=== PATIENT | male | born 1985 | race African-American/Black ===

== ENCOUNTER 2019-06-10 14:16 | Emergency (ER) | payer SELFPAY ==
[2019-06-10 14:32] VITALS: BP 140/76
[2019-06-10] MEDS ORDERED: KETOROLAC TROMETHAMINE 60 MG/2 ML SDV IM ONE (15:11)
--- NOTE | 2019-06-10 15:11 | ER Document Report ---
ED Medical Screen (RME) - General Stated Complaint: FACE SWOLLEN - LEFT SIDE Time Seen by Provider: 06/10/19 15:06 Primary Care Provider: MARIZA ONEAL [Primary Care Provider] - Follow up as needed - [facility] Notes: 06/10/19 15:12 34-year-old male presents the ED for evaluation of left upper dental pain that started approximately 3 days ago. Patient states that he has had a dental cavity that he has not been able to get to the dentist for. Denies any fevers or chills. Is a smoker. Worse with time, nothing makes better. Has not tried any oyqt-sbr-[id number] medications. Has not tried any heat or ice. Denies fevers, chills, chest pain,palpitations, shortness of breath, dyspnea, nausea, vomiting, diarrhea, abdominal pain, hematuria,blurred vision, double vision, loss of vision, speech changes, LH, dizziness, syncope, headaches, wheezing, ST, URI, neck pain, weakness, bowel or bladder dysfunction, saddle anesthesia, numbness or tingling in bilateral upper or lower extremities equally, muscle paralysis, weakness in bilateral upper or lower extremities equally or rash. REVIEW OF SYSTEMS:reviewed vital signs by RN CONSTITUTIONAL : Denies fever, chills, or sweats. Denies recent illness. EENT: Denies eye, ear, throat, or mouth pain or symptoms. Denies nasal or sinus congestion or discharge. Denies throat, tongue, or mouth swelling or difficulty swallowing. reports dental pain CARDIOVASCULAR: Denies chest pain. Denies palpitations or racing or irregular heart beat. Denies ankle edema. RESPIRATORY: Denies cough, cold, or chest congestion. Denies shortness of breath, difficulty breathing, or wheezing. GASTROINTESTINAL: Denies abdominal pain or distention. Denies nausea, vomiting, or diarrhea. Denies blood in vomitus, stools, or per rectum. Denies black, tarry stools. Denies constipation. GENITOURINARY: Denies difficulty urinating, painful urination, burning, frequency, blood in urine, or discharge. MUSCULOSKELETAL: Denies back or neck pain or stiffness. Denies joint pain or swelling. SKIN: Denies rash, lesions or sores. HEMATOLOGIC : Denies easy bruising or bleeding. LYMPHATIC: Denies swollen, enlarged glands. NEUROLOGICAL: Denies confusion or altered mental status. Denies passing out or loss of consciousness. Denies dizziness or lightheadedness. Denies headache. Denies weakness or paralysis or loss of use of either side. Denies problems with gait or speech. Denies sensory loss, numbness, or tingling. Denies seizures. PSYCHIATRIC: Denies anxiety or stress. Denies depression, suicidal ideation, or homicidal ideation. ALL OTHER SYSTEMS REVIEWED AND NEGATIVE. Dictation was performed using [employer] voice recognition software PHYSICAL EXAMINATION: GENERAL: Well-appearing, well-nourished and in no acute distress. HEAD: Atraumatic, normocephalic. EYES: Pupils equal round and reactive to light, extraocular movements intact, sclera anicteric, conjunctiva are normal. ENT: Nares patent, oropharynx clear without exudates. Moist mucous membranes. TM with effusion bilaterally, no erythema. TMs intact. #14 gingiva with swelling, erythema and induration. No drainage or open wounds. No fluctuance. No facial swelling. Poor oral dentition, right upper jaw with several dental caries, no definite swelling or effusion. no trismus noted. Uvula is midline NECK: Normal range of motion, supple without lymphadenopathy LUNGS: Breath sounds clear to auscultation bilaterally and equal. No wheezes rales or rhonchi. HEART: Regular rate and rhythm without murmurs ABDOMEN: Soft, nontender, nondistended abdomen. No guarding, no rebound. No masses appreciated. Musculoskeletal: Normal range of motion, no pitting or edema. No cyanosis. NEUROLOGICAL: Cranial nerves grossly intact. Normal speech, normal gait. Normal sensory, motor exams PSYCH: Normal mood, normal affect. SKIN: Warm, Dry, normal turgor, no rashes or lesions noted. - Related Data Allergies/Adverse Reactions: shellfish derived Allergy (Verified 06/10/19 15:09) Physical Exam - Vital signs Vitals: Temp Pulse Resp BP Pulse Ox 99 F 84 20 140/76 H 99 06/10/19 14:29 06/10/19 14:29 06/10/19 14:29 06/10/19 14:29 06/10/19 14:29 Course - Re-evaluation Re-evalutation: 06/10/19 15:14 Afebrile vital stable no distress. Nurse's notes reviewed. Patient given Toradol 60 mg IM and will be started on clindamycin, take with food. Advised to follow-up with dentist for filling or tooth extraction. Advised to alternate between Tylenol and ibuprofen for pain control. To avoid smoking. Apply heat 20 minutes on 20 minutes off several times a day. After performing a Medical Screening Examination, I estimate there is LOW risk for a DEEP SPACE INFECTION (e.g., RAVI'S ANGINA OR RETROPHARYNGEAL ABSCESS), MENINGITIS, INTRACRANIAL HEMORRHAGE, or AIRWAY COMPROMISE, thus I consider the discharge disposition reasonable. Also, there is no evidence or peritonitis, sepsis, or toxicity. I have reevaluated this patient multiple times and no significant life threatening changes are noted. The patient and I have discussed the diagnosis and risks, and we agree with discharging home with close follow-up with the understanding that symptoms and presentations can change. We also discussed returning to the Emergency Department immediately if new or worsening symptoms occur. We have discussed the symptoms which are most concerning (e.g., changing or worsening pain, trouble swallowing or breathing, neck stiffness or fever) that necessitate immediate return. - Vital Signs Vital signs: Temp Pulse Resp BP Pulse Ox 99 F 84 20 140/76 H 99 06/10/19 14:29 06/10/19 14:29 06/10/19 14:29 06/10/19 14:29 06/10/19 14:29 Doctor's Discharge - Discharge Clinical Impression: Dental caries Condition: Stable Disposition: HOME, SELF-CARE Instructions: Dentist, Dental Infection or Abscess ([facility]) Additional Instructions: Apply heat 20 minutes on 20 minutes off several times a day, take antibiotics as directed with food. Alternate between Tylenol and ibuprofen. Follow-up with dentist within the next 5 days. Return immediately for any new or worsening symptoms. Follow up with primary care provider, call tomorrow to make followup appointment. Prescriptions: Clindamycin HCl 300 mg PO Q6H #28 capsule Forms: Return to Work Referrals: MARIZA ONEAL [Primary Care Provider] - Follow up as needed DEISY JOHNSON MD [COMMUNITY BASED STAFF] - Follow up as needed
--- NOTE | 2019-06-10 15:17 | ER Document Report ---
HPI - HPI Time Seen by Provider: 06/10/19 15:06 Pain Level: 3 Notes: 34-year-old male presents the ED for evaluation of left upper dental pain that started approximately 3 days ago. Patient states that he has had a dental cavity that he has not been able to get to the dentist for. Denies any fevers or chills. Is a smoker. Worse with time, nothing makes better. Has not tried any mcis-tak-tthwign medications. Has not tried any heat or ice. Denies fevers, chills, chest pain,palpitations, shortness of breath, dyspnea, nausea, vomiting, diarrhea, abdominal pain, hematuria,blurred vision, double vision, loss of vision, speech changes, LH, dizziness, syncope, headaches, wheezing, ST, URI, neck pain, weakness, bowel or bladder dysfunction, saddle anesthesia, numbness or tingling in bilateral upper or lower extremities equally, muscle paralysis, weakness in bilateral upper or lower extremities equally or rash. REVIEW OF SYSTEMS:reviewed vital signs by RN CONSTITUTIONAL : Denies fever, chills, or sweats. Denies recent illness. EENT: Denies eye, ear, throat, or mouth pain or symptoms. Denies nasal or sinus congestion or discharge. Denies throat, tongue, or mouth swelling or difficulty swallowing. reports dental pain CARDIOVASCULAR: Denies chest pain. Denies palpitations or racing or irregular heart beat. Denies ankle edema. RESPIRATORY: Denies cough, cold, or chest congestion. Denies shortness of breath, difficulty breathing, or wheezing. GASTROINTESTINAL: Denies abdominal pain or distention. Denies nausea, vomiting, or diarrhea. Denies blood in vomitus, stools, or per rectum. Denies black, tarry stools. Denies constipation. GENITOURINARY: Denies difficulty urinating, painful urination, burning, frequency, blood in urine, or discharge. MUSCULOSKELETAL: Denies back or neck pain or stiffness. Denies joint pain or swelling. SKIN: Denies rash, lesions or sores. HEMATOLOGIC : Denies easy bruising or bleeding. LYMPHATIC: Denies swollen, enlarged glands. NEUROLOGICAL: Denies confusion or altered mental status. Denies passing out or loss of consciousness. Denies dizziness or lightheadedness. Denies headache. Denies weakness or paralysis or loss of use of either side. Denies problems with gait or speech. Denies sensory loss, numbness, or tingling. Denies seizures. PSYCHIATRIC: Denies anxiety or stress. Denies depression, suicidal ideation, or homicidal ideation. ALL OTHER SYSTEMS REVIEWED AND NEGATIVE. Dictation was performed using [employer] recognition software PHYSICAL EXAMINATION: GENERAL: Well-appearing, well-nourished and in no acute distress. HEAD: Atraumatic, normocephalic. EYES: Pupils equal round and reactive to light, extraocular movements intact, sclera anicteric, conjunctiva are normal. ENT: Nares patent, oropharynx clear without exudates. Moist mucous membranes. TM with effusion bilaterally, no erythema. TMs intact. #14 gingiva with swelling, erythema and induration. No drainage or open wounds. No fluctuance. No facial swelling. Poor oral dentition, right upper jaw with several dental caries, no definite swelling or effusion. no trismus noted. Uvula is midline NECK: Normal range of motion, supple without lymphadenopathy LUNGS: Breath sounds clear to auscultation bilaterally and equal. No wheezes rales or rhonchi. HEART: Regular rate and rhythm without murmurs ABDOMEN: Soft, nontender, nondistended abdomen. No guarding, no rebound. No masses appreciated. Musculoskeletal: Normal range of motion, no pitting or edema. No cyanosis. NEUROLOGICAL: Cranial nerves grossly intact. Normal speech, normal gait. Normal sensory, motor exams PSYCH: Normal mood, normal affect. SKIN: Warm, Dry, normal turgor, no rashes or lesions noted. Course - Re-evaluation Re-evalutation: 06/10/19 15:14 Afebrile vital stable no distress. Nurse's notes reviewed. Patient given Toradol 60 mg IM and will be started on clindamycin, take with food. Advised to follow-up with dentist for filling or tooth extraction. Advised to alternate between Tylenol and ibuprofen for pain control. To avoid smoking. Apply heat 20 minutes on 20 minutes off several times a day. After performing a Medical Screening Examination, I estimate there is LOW risk for a DEEP SPACE INFECTION (e.g., RAVI'S ANGINA OR RETROPHARYNGEAL ABSCESS), MENINGITIS, INTRACRANIAL HEMORRHAGE, or AIRWAY COMPROMISE, thus I consider the discharge disposition reasonable. Also, there is no evidence or peritonitis, sepsis, or toxicity. I have reevaluated this patient multiple times and no significant life threatening changes are noted. The patient and I have discussed the diagnosis and risks, and we agree with discharging home with close follow-up with the understanding that symptoms and presentations can change. We also discussed returning to the Emergency Department immediately if new or worsening symptoms occur. We have discussed the symptoms which are most concerning (e.g., changing or worsening pain, trouble swallowing or breathing, neck stiffness or fever) that necessitate immediate return. - CONSTITUTIONAL Constitutional: DENIES: Fever, Chills - EENT EENT: DENIES: Sore Throat, Ear Pain, Eye problems - NEURO Neurology: REPORTS: Headache. DENIES: Weakness, Vision blurred, Dizzinesss / Vertigo - CARDIOVASCULAR Cardiovascular: DENIES: Chest pain - RESPIRATORY Respiratory: DENIES: Trouble Breathing, Coughing - GASTROINTESTINAL Gastrointestinal: DENIES: Abdominal Pain, Black / Bloody Stools - URINARY Urinary: DENIES: Dysuria, Urgency, Frequency - MUSCULOSKELETAL Musculoskeletal: DENIES: Extremity pain Past Medical History - General Information source: Patient - Social History Smoking Status: Current Every Day Smoker Chew tobacco use (# tins/day): No Frequency of alcohol use: None Drug Abuse: None Family History: Reviewed & Not Pertinent Patient has suicidal ideation: No Patient has homicidal ideation: No Course - Vital Signs Vital signs: Temp Pulse Resp BP Pulse Ox 99 F 84 20 140/76 H 99 06/10/19 15:05 06/10/19 15:05 06/10/19 15:05 06/10/19 15:05 06/10/19 15:05 Discharge - Discharge Clinical Impression: Dental caries Condition: Stable Disposition: HOME, SELF-CARE Instructions: Dentist, Dental Infection or Abscess ([facility]) Additional Instructions: Apply heat 20 minutes on 20 minutes off several times a day, take antibiotics as directed with food. Alternate between Tylenol and ibuprofen. Follow-up with dentist within the next 5 days. Return immediately for any new or worsening symptoms. Follow up with primary care provider, call tomorrow to make followup appointment. Prescriptions: Clindamycin HCl 300 mg PO Q6H #28 capsule Forms: Return to Work Referrals: DEIYS JOHNSON MD [COMMUNITY BASED STAFF] - Follow up as needed LOCALMARIZA MORALEZ [Primary Care Provider] - Follow up as needed
== END 2019-06-10 15:46 | disposition home or self-care (01) ==
LOC: ER 14:16
DX: K02.9 Dental caries, unspecified (principal); K08.89 Other specified disorders of teeth and supporting structures; R51 Headache; F17.200 Nicotine dependence, unspecified, uncomplicated
CPT/HCPCS: 99283; 96372; J1885